=== PATIENT | male | born 1970 | race Caucasian/White ===

== ENCOUNTER 2020-01-10 12:15 | Emergency (ER) | payer BC ==
[~2020-01-10] VITALS: Ht 177.8 cm; Wt 90.0 kg
[2020-01-10] MEDS ORDERED: LIDOcaine 1% W/epiNEPHrine 1:200,000 10ml vial IJ ONE (14:40)
--- NOTE | 2020-01-10 15:01 | NUR ---
PT'S BOOT IS REMOVED AND GAUZE PLACE ON WOUND. XRAYS COMPLETE.
[2020-01-10] MEDS ORDERED: DOXY100C77 PO (16:39)
[2020-01-10 17:26] VITALS: BP 128/77
== END 2020-01-10 17:28 | disposition home or self-care (01) ==
LOC: ER 12:16
DX: S91.312A Laceration without foreign body, left foot, initial encounter (principal); Z88.0 Allergy status to penicillin; W27.8XXA Contact with other nonpowered hand tool, initial encounter; Y93.89 Activity, other specified; Y92.89 Other specified places as the place of occurrence of the external cause; Y99.8 Other external cause status
CPT/HCPCS: 12001; 73630; 99283

== ENCOUNTER 2022-02-15 07:54 | Day surgery (SDC) | payer BC ==
[2022-02-10 15:40] LABS: CLARITY,URINE CLEAR (Clear); COLOR,URINE YELLOW (Yellow); GLUCOSE, URINE NEGATIVE (Neg); KETONES,URINE TRACE mg/dl (Neg); LEUKOCYTE ESTERASE ,URINE NEGATIVE (Neg); NITRITES, URINE NEGATIVE (Neg); OCCULT BLOOD,URINE TRACE-INTACT (Neg); PH,URINE 5.5 (4.8-8.0); PROTEIN,URINE NEGATIVE (Neg); UROBILINOGEN,URINE 0.2 E.U/dL (0.2-1.0)
[2022-02-10 15:47] LABS: BASOPHILS # (AUTO) 0.1 X10'3 (0-0.2); BASOPHILS % (AUTO) 0.8 % (0-1); EOSINOPHILS # (AUTO) 0.4 X10'3 (0-0.9); EOSINOPHILS % (AUTO) 4.1 % (0-6); LYMPHOCYTES # (AUTO) 2.8 X10'3 (1.1-4.8); LYMPHOCYTES % (AUTO) 30.3 % (21-51); MEAN CORPUSCULAR HEMOGLOBIN 33.4 PG (27.0-31.0); MEAN CORPUSCULAR HGB CONC 34.5 g/dL (33.0-36.5); MEAN CORPUSCULAR VOLUME 96.6 FL (78-98); MEAN PLATELET VOLUME 6.4 FL (7.4-10.4); MONOCYTES # (AUTO) 0.8 X10'3 (0-0.9); MONOCYTES % (AUTO) 8.7 % (2-12); NEUTROPHILS # (AUTO) 5.2 X10'3 (1.8-7.7); NEUTROPHILS % (AUTO) 56.1 % (42-75); PRE OP HEMATOCRIT 47.7 % (42.0-52.0); PRE OP HEMOGLOBIN 16.5 g/dL (14.0-17.9); PRE OP PLATELET COUNT 255 X10'3 (140-440); RED BLOOD COUNT 4.94 X10'6 (4.70-6.10); RED CELL DISTRIBUTION WIDTH 12.8 % (11.5-14.5)
[2022-02-10 15:56] LABS: ALBUMIN 4.1 G/DL (3.4-5.0); ALKALINE PHOSPHATASE 85 IU/L (46-116); BLOOD UREA NITROGEN 12 MG/DL (7-18); CALCIUM 9.2 MG/DL (8.5-10.1); CHLORIDE 101 MMOL/L (99-107); PRE OP ALT 57 U/L (30-65); PRE OP ANION GAP 9 (8-16); PRE OP AST 38 U/L (10-37); PRE OP BILIRUB, TOTAL 0.4 MG/DL (0.0-1.0); PRE OP GLUCOSE 89 MG/DL (70-104); PRE OP POTASSIUM 3.6 MMOL/L (3.4-5.1); PRE OP SODIUM 138 MMOL/L (135-145); TOTAL CARBON DIOXIDE 28.3 MMOL/L (24-32); TOTAL PROTEIN 8.2 G/DL (6.4-8.2); eGFR 79 ML/MIN
[2022-02-10 16:00] LABS: UA COLLECTION TYPE CLN CATCH MIDSTREAM
[2022-02-10 16:01] LABS: BACTERIA,URINE FEW /HPF (Neg); RBC,URINE 0-2 /HPF (0-2); SQUAMOUS EPITHELIAL CELL,UR FEW /LPF (FEW); WBC,URINE 0-4 /HPF (0-4)
[2022-02-15] VITALS (24 sets, daily range): BP systolic 116–166; BP diastolic 57–102
[~2022-02-15] VITALS: Ht 177.8 cm; Wt 87.7 kg
[~2022-02-15 07:54] MED LIST: LISI10TA27 PO; clindamycin-Cleocin 900mg/D5W 50 ML IV ONE; famotidine 20mg tablet PO ONE; ringers solution, lacted 1,000 ML IV SCH
[2022-02-15] MEDS ORDERED: BUPIVACAINE liposomal/PF 13.3 MG/ML vial IM ONE (10:10)
[2022-02-15] MEDS ORDERED: BUPIVAcaine/PF 2.5 mg/ml (0.25%) 30ml vial ONE (10:10)
[2022-02-15] MEDS ORDERED: BUPIVAcaine/PF 2.5mg/ml (0.25%) 10ml vial ONE (10:11)
[2022-02-15] MEDS ORDERED: rocuronium 10mg/ml inj IV ONE ×2 (10:52→11:43)
[2022-02-15] MEDS ORDERED: midazolam 1 mg/ML 2ml injection ONE (10:52)
[2022-02-15] MEDS ORDERED: fentaNYL/PF 50MCG/1 ML 2ML syringe ONE (10:52)
[2022-02-15] MEDS ORDERED: propofol inj 20 ML IV ONE (10:52)
[2022-02-15] MEDS ORDERED: sevoflurane 250ml liquid IH ONE (10:53)
[2022-02-15] MEDS ORDERED: ringers solution, lacted 1,000 ML IV SCH (12:05)
[2022-02-15] MEDS ORDERED: morphine 2 MG/ML inj. syringe IV PRN (12:05)
[2022-02-15] MEDS ORDERED: ketorolac trometh. 30mg/ml inj. IV ONE (12:05)
[2022-02-15] MEDS ORDERED: proCHLORperazine 10 MG/2 ml inj IV PRN (12:05)
[2022-02-15] MEDS ORDERED: ondansetron/PF 4mg/2ml inj IV PRN (12:05)
[2022-02-15] MEDS ORDERED: meperidine/PF 25mg/ml syringe IV PRN ×2 (12:05)
[2022-02-15] MEDS ORDERED: labetalol 20mg/4ml (5mg/ml) syringe IV PRN (12:05)
[2022-02-15] MEDS ORDERED: dexamethasone sod phosphate 4mg/ml inj. ONE (12:06)
[2022-02-15] MEDS ORDERED: ondansetron/PF 4mg/2ml inj ONE (12:06)
[2022-02-15] MEDS ORDERED: glycopyrrolate 0.2mg/ml inj ONE (12:12)
[2022-02-15] MEDS ORDERED: neostigmine methylsulfate 1 MG/ML 10ml vial ONE (12:12)
[2022-02-15] MEDS ORDERED: acetaminophen 1,000mg/100ml IV 100 ML IV ONE (12:13)
[2022-02-15] MEDS ORDERED: sugammadex 200mg/2ml injection IV ONE (12:18)
--- NOTE | 2022-02-15 12:25 | NUR ---
PT ARRIVE TO RR VIA GURNEY ACCOMPANIED BY DR DELACRUZ- ANESTHESIA REPORT GIVEN, PT AWAKE AND MOANING IN PAIN, VSS, ABD SITES X3-CDI, WORKING TO PAIN UNDER CONTROL.
[2022-02-15] MEDS: meperidine/PF 25mg/ml syringe IV PRN ×3 (13:00→13:34)
--- NOTE | 2022-02-15 13:00 | NUR ---
VSS, CHASING PAIN WITH NARCOTICS, ASSESSMENT UNCHANGED, LAP SITES-CDI, PT AWAKE AND MOANING STILL, ATTEMPTING TO DISTRACT AND TRY RELAXATION TECHNIQUES ALONG WITH MEDS
[2022-02-15] MEDS: morphine 4 MG/ML inj SYRINge IV PRN ×2 (13:02→13:05)
[2022-02-15] MEDS ORDERED: HYDROmorphone/PF 0.2 MG/ML SYRINGE IV PRN ×2 (14:10)
[2022-02-15] MEDS ORDERED: fentaNYL/PF 50MCG/1 ML 2ML syringe IV PRN (14:10)
[2022-02-15] MEDS ORDERED: HYDROcodone/acetaminophen 10/325mg tab PO ONE (14:57)
--- NOTE | 2022-02-15 15:00 | NUR ---
PT RESTING QUIETLY BUT STILL UNWILLING TO MOVE STATES PAIN IS 7-10, HAS BEEN GIVEN ALL POSSIBLE PAIN MEDS, DR. CANCINO CALLED-ORDERS GIVEN FOR MORE PAIN MED OPTIONS, MEDS STARTED AND TO BE PROVIDING ADDITIONAL RELIEF. VSS, LAP SITES-UNCHANGED, WILL CONTINUE TO MONITOR
[2022-02-15] MEDS: fentaNYL/PF 50MCG/1 ML 2ML syringe IV PRN ×2 (15:53→16:55)
--- NOTE | 2022-02-15 16:00 | NUR ---
SUCCESSFULLY ABLE TO GET PT TO GET UP AND HELP GET DRESSED-PAIN MOSTLY 4/10, HAS BEEN GIVEN 1 [facility] FOR TRIP HOME, VSS, NO CHANGE IN LAP SITES, TOLERATING CRACKERS AND WATER, D/C INSTRUCTIONS GIVEN TO PT-ALL QUESTIONS ANSWERED. PT TAKEN VIA W/C WITH ALL BELONGINGS TO VEHICLE FOR TRANSPORT HOME.
== END 2022-02-15 16:15 | disposition home or self-care (01) ==
LOC: PAS 07:54
PROVIDERS: ATTEND Surgery
DX: K42.9 Umbilical hernia without obstruction or gangrene (principal); Z79.899 Other long term (current) drug therapy; Z98.890 Other specified postprocedural states; Z88.0 Allergy status to penicillin
CPT/HCPCS: 36415; 49652; 64488; 80053; 81001; 82948; 85025; 93005; C1781; C9290; J0131; J0780; J1100; J1170; J1885; J2175; J2250; J2270; J2405; J2704; J2710; J3010; J3490; J7030; J7120; Z7506; Z7508; Z7512; A4615; A4618; A7000